=== PATIENT | male | born 1985 | race Caucasian/White ===

== ENCOUNTER 2018-03-07 20:53 | Inpatient (IN) | payer SELFPAY ==
[~2018-03-07] VITALS: Ht 172.7 cm; Wt 79.5 kg
[2018-03-07] MEDS ORDERED: HALOPERIDOL LACTATE 5 MG/ML VIAL IM ONE (21:45)
[2018-03-07] MEDS ORDERED: DiphenhydrAMINE HCL 50 MG/ML VIAL IM ONE (21:45)
[2018-03-07] MEDS ORDERED: LORazepam 2 MG/ML VIAL IM ONE (21:45)
[2018-03-07 21:53] LABS: BASOPHILS % (AUTO) 0.5 % (0.0-2.0); EOSINOPHILS % (AUTO) 0.7 % (1.0-6.0); HEMATOCRIT 48.3 % (41-53); HEMOGLOBIN 16.8 g/dL (13.5-17.5); LYMPHOCYTES # (AUTO) 1.2 K/uL (1.0-4.8); LYMPHOCYTES % (AUTO) 9.2 % (22.0-44.0); MEAN CORPUSCULAR HEMOGLOBIN 33.5 pg (26.0-34.0); MEAN CORPUSCULAR HGB CONC 34.7 G/dL (31.0-37.0); MEAN CORPUSCULAR VOLUME 96 fL (80-100); MONOCYTES % (AUTO) 7.9 % (2.0-9.0); NEUTROPHILS # (AUTO) 10.4 K/uL (1.8-7.7); NEUTROPHILS % (AUTO) 81.7 % (40.0-70.0); PLATELET COUNT (AUTO) 229 K/uL (150-450); RED BLOOD CELL COUNT(AUTO) 5.01 MIL/uL (4.50-5.90); RED CELL DISTRIBUTION WIDTH 12.8 % (11.5-14.5)
[2018-03-07 22:09] LABS: ANION GAP 6 mmol/L (8-16); CALCIUM, TOTAL 9.2 mg/dL (8.8-10.5); CARBON DIOXIDE 31 mmol/L (22-29); CHLORIDE 103 mmol/L (98-107); CREATININE 1.07 mg/dL (0.60-1.30); GLOMERULAR FILTR. RATE CALC > 60 mL/min (>60); GLUCOSE,RANDOM 106 mg/dL (70-110); POTASSIUM 4.1 mmol/L (3.5-5.1); SODIUM SERUM 140 mmol/L (136-145); UREA NITROGEN, BLOOD 16 mg/dL (7-18)
[2018-03-07 22:15] LABS: ALANINE AMINOTRANSFERASE 22 U/L (12-78); ALBUMIN 4.9 g/dL (3.4-5.0); ALKALINE PHOSPHATASE 78 U/L (46-116); ASPARTATE AMINOTRANSFERASE 17 U/L (15-37); TOTAL PROTEIN, SERUM 7.8 g/dL (6.4-8.2)
[2018-03-07] MEDS ORDERED: ZOLPIDEM TARTRATE 10 MG TABLET PO PRN (23:15)
[2018-03-07] MEDS ORDERED: HALOPERIDOL 5 MG TABLET PO PRN (23:15)
[2018-03-08 09:25] LABS: CHOL/HDL RATIO 2.3 (4.2-7.3); CHOLESTEROL 129 mg/dL (131-200); FREE T4 (FREE THYROXINE) 1.24 ng/dL (0.76-1.46); HDL CHOLESTEROL 55 mg/dL (40-60); LDL CHOL (CALC.) 58 mg/dL (0-130); THYROID STIMULATING HORMONE 1.63 uIU/mL (0.36-3.74); TRIGLYCERIDES 80 mg/dL (15-150)
[2018-03-08 16:00] VITALS: BP 115/76
[2018-03-08] MEDS: RisperiDONE 1 MG TABLET PO SCH (17:32)
[2018-03-08] MEDS: LORazepam 2 MG TABLET PO PRN (17:32)
[2018-03-08] MEDS ORDERED: ALBUTEROL SULFATE HFA 90 MCG/PUFF 8 GM INHALER IH PRN (21:30)
[2018-03-08] MEDS ORDERED: ACETAMINOPHEN 325 MG TABLET PO PRN (21:30)
[2018-03-08] MEDS ORDERED: ONDANSETRON HCL 4 MG TABLET PO PRN (21:30)
[2018-03-08] MEDS ORDERED: BACITRACIN 28.4 GM OINTMENT TP PRN (21:30)
[2018-03-08] MEDS ORDERED: MAG HYDROX/AL HYDROX/SIMETH ES 30 ML SUSPENSION UDCUP PO PRN (21:30)
[2018-03-08] MEDS ORDERED: BENZOCAINE/MENTHOL LOZENGE MM PRN (21:30)
[2018-03-08] MEDS ORDERED: PETROLATUM,WHITE 71 GM JELLY TP PRN (21:30)
[2018-03-08] MEDS ORDERED: IBUPROFEN 600 MG TABLET PO PRN (21:30)
[2018-03-08] MEDS ORDERED: MAGNESIUM HYDROXIDE SUSPENSION 30 ML UDCUP PO PRN (21:30)
[2018-03-08] MEDS ORDERED: CloNIDine HCL 0.1 MG TABLET PO PRN (21:30)
[2018-03-08] MEDS ORDERED: LOPERAMIDE HCL 2 MG CAPSULE PO PRN (21:30)
[2018-03-09 06:24] VITALS: BP 112/65
[2018-03-09 08:08] VITALS: BP 116/67
[2018-03-09 09:04] LABS: CHOL/HDL RATIO 2.2 (4.2-7.3); FREE T4 (FREE THYROXINE) 0.91 ng/dL (0.76-1.46); THYROID STIMULATING HORMONE 0.52 uIU/mL (0.36-3.74)
[2018-03-09] MEDS: RisperiDONE 1 MG TABLET PO SCH ×2 (09:22→17:00)
[2018-03-09] MEDS: OMEPRAZOLE 20 MG CAPSULE PO SCH (09:23)
[2018-03-09] MEDS: DOCUSATE SODIUM 100 MG CAPSULE PO SCH (09:23)
[2018-03-09] MEDS: LORazepam 2 MG TABLET PO PRN (17:00)
[2018-03-09 17:05] VITALS: BP 102/60
[2018-03-10 07:10] VITALS: BP 101/63
[2018-03-10 08:09] VITALS: BP 108/61
[2018-03-10] MEDS: DOCUSATE SODIUM 100 MG CAPSULE PO SCH (08:40)
[2018-03-10] MEDS: OMEPRAZOLE 20 MG CAPSULE PO SCH (08:40)
[2018-03-10] MEDS: RisperiDONE 1 MG TABLET PO SCH (08:40)
[2018-03-10] MEDS ORDERED: RISP1 PO (15:12)
== END 2018-03-10 16:00 | disposition home or self-care (01) | DRG 885 ==
LOC: EMS 20:55 → UNDOADMIN 23:14 → B3A 23:14
PROVIDERS: ADMIT Psychiatry & Neurology Child & Adolescent Psychiatry; ATTEND Psychiatry & Neurology Child & Adolescent Psychiatry
DX: F25.9 Schizoaffective disorder, unspecified (principal); F15.90 Other stimulant use, unspecified, uncomplicated; Z71.51 Drug abuse counseling and surveillance of drug abuser; F17.200 Nicotine dependence, unspecified, uncomplicated; F41.9 Anxiety disorder, unspecified; G47.00 Insomnia, unspecified; K59.00 Constipation, unspecified; Z71.6 Tobacco abuse counseling; Z28.21 Immunization not carried out because of patient refusal; Z79.899 Other long term (current) drug therapy
CPT/HCPCS: 83036; 84439; 84443; 90686; 96372; G0480; J1200; J1630; J2060

== ENCOUNTER 2018-04-29 09:26 | Inpatient (IN) | payer MEDICAID ==
[~2018-04-29] VITALS: Ht 167.6 cm; Wt 74.1 kg
[~2018-04-29 09:26] MED LIST: RISP1 PO
[2018-04-29] MEDS ORDERED: HALOPERIDOL LACTATE 5 MG/ML VIAL IM ONE (11:00)
[2018-04-29] MEDS ORDERED: LORazepam 2 MG/ML VIAL IM ONE (11:00)
[2018-04-29] MEDS ORDERED: DiphenhydrAMINE HCL 50 MG/ML VIAL IM ONE (11:00)
[2018-04-29] MEDS ORDERED: DiphenhydrAMINE HCL 50 MG/ML VIAL ONE (11:07)
[2018-04-29] MEDS ORDERED: LORazepam 2 MG/ML VIAL ONE (11:07)
[2018-04-29] MEDS ORDERED: HALOPERIDOL LACTATE 5 MG/ML VIAL ONE (11:08)
[2018-04-29] MEDS ORDERED: ZOLPIDEM TARTRATE 10 MG TABLET PO PRN (11:45)
[2018-04-29 13:10] LABS: BASOPHILS % (AUTO) 0.3 % (0.0-2.0); EOSINOPHILS % (AUTO) 0.1 % (1.0-6.0); HEMATOCRIT 43.4 % (41-53); LYMPHOCYTES # (AUTO) 1.1 K/uL (1.0-4.8); LYMPHOCYTES % (AUTO) 10.5 % (22.0-44.0); MEAN CORPUSCULAR HEMOGLOBIN 33.2 pg (26.0-34.0); MEAN CORPUSCULAR HGB CONC 34.7 G/dL (31.0-37.0); MEAN CORPUSCULAR VOLUME 96 fL (80-100); MONOCYTES % (AUTO) 9.5 % (2.0-9.0); NEUTROPHILS # (AUTO) 8.1 K/uL (1.8-7.7); NEUTROPHILS % (AUTO) 79.6 % (40.0-70.0); PLATELET COUNT (AUTO) 207 K/uL (150-450); RED BLOOD CELL COUNT(AUTO) 4.53 MIL/uL (4.50-5.90); RED CELL DISTRIBUTION WIDTH 12.6 % (11.5-14.5)
[2018-04-29 13:18] LABS: ANION GAP 12 mmol/L (8-16); CALCIUM, TOTAL 9.2 mg/dL (8.8-10.5); CARBON DIOXIDE 26 mmol/L (22-29); CHLORIDE 103 mmol/L (98-107); CREATININE 0.87 mg/dL (0.60-1.30); GLOMERULAR FILTR. RATE CALC > 60 mL/min (>60); GLUCOSE,RANDOM 98 mg/dL (70-110); POTASSIUM 3.5 mmol/L (3.5-5.1); SODIUM SERUM 141 mmol/L (136-145); UREA NITROGEN, BLOOD 17 mg/dL (7-18)
[2018-04-29 13:24] LABS: ALANINE AMINOTRANSFERASE 29 U/L (12-78); ALKALINE PHOSPHATASE 76 U/L (46-116); ASPARTATE AMINOTRANSFERASE 23 U/L (15-37); BILIRUBIN,TOTAL 0.9 mg/dL (0.1-1.0); TOTAL PROTEIN, SERUM 6.9 g/dL (6.4-8.2)
[2018-04-29] MEDS ORDERED: SODIUM CHLORIDE 0.9% 1,000 ML IV ONE ×2 (19:46→20:00)
[2018-04-29 23:03] VITALS: BP 108/62
[2018-04-30 08:21] VITALS: BP 103/81
[2018-04-30] MEDS: RisperiDONE 2 MG TABLET PO SCH ×2 (10:35→16:23)
[2018-04-30 16:00] VITALS: BP 103/76
[2018-04-30] MEDS: LORazepam 2 MG TABLET PO PRN (18:17)
[2018-04-30] MEDS ORDERED: BACITRACIN 28.4 GM OINTMENT TP PRN (19:45)
[2018-04-30] MEDS ORDERED: ALBUTEROL SULFATE HFA 90 MCG/PUFF 8 GM INHALER IH PRN (19:45)
[2018-04-30] MEDS ORDERED: MAGNESIUM HYDROXIDE SUSPENSION 30 ML UDCUP PO PRN (19:45)
[2018-04-30] MEDS ORDERED: ONDANSETRON HCL 4 MG TABLET PO PRN (19:45)
[2018-04-30] MEDS ORDERED: BENZOCAINE/MENTHOL LOZENGE MM PRN (19:45)
[2018-04-30] MEDS ORDERED: CloNIDine HCL 0.1 MG TABLET PO PRN (19:45)
[2018-04-30] MEDS ORDERED: PETROLATUM,WHITE 71 GM JELLY TP PRN (19:45)
[2018-04-30] MEDS ORDERED: IBUPROFEN 600 MG TABLET PO PRN (19:45)
[2018-04-30] MEDS ORDERED: MAG HYDROX/AL HYDROX/SIMETH ES 30 ML SUSPENSION UDCUP PO PRN (19:45)
[2018-04-30] MEDS ORDERED: LOPERAMIDE HCL 2 MG CAPSULE PO PRN (19:45)
[2018-04-30] MEDS ORDERED: ACETAMINOPHEN 325 MG TABLET PO PRN (19:45)
[2018-05-01 06:55] VITALS: BP 107/74
[2018-05-01 08:17] VITALS: BP 106/70
[2018-05-01] MEDS: OMEPRAZOLE 20 MG CAPSULE PO SCH (09:02)
[2018-05-01] MEDS: DOCUSATE SODIUM 100 MG CAPSULE PO SCH (09:02)
[2018-05-01] MEDS: RisperiDONE 2 MG TABLET PO SCH ×2 (09:02→16:29)
[2018-05-01 16:00] VITALS: BP 104/67
[2018-05-01] MEDS: LORazepam 2 MG TABLET PO PRN (16:29)
[2018-05-02 06:35] VITALS: BP 101/71
[2018-05-02 08:17] VITALS: BP 106/64
[2018-05-02] MEDS: RisperiDONE 2 MG TABLET PO SCH ×2 (09:14→16:46)
[2018-05-02] MEDS: DOCUSATE SODIUM 100 MG CAPSULE PO SCH (09:14)
[2018-05-02] MEDS: HALOPERIDOL 5 MG TABLET PO PRN ×2 (09:14→16:46)
[2018-05-02] MEDS: OMEPRAZOLE 20 MG CAPSULE PO SCH (09:14)
[2018-05-02] MEDS: LORazepam 2 MG TABLET PO PRN ×2 (09:14→16:46)
[2018-05-02 16:00] VITALS: BP 101/63
[2018-05-03 05:54] VITALS: BP 111/68
[2018-05-03] MEDS: RisperiDONE 2 MG TABLET PO SCH ×2 (08:32→17:01)
[2018-05-03] MEDS: LORazepam 2 MG TABLET PO PRN ×2 (08:32→17:01)
[2018-05-03] MEDS: DOCUSATE SODIUM 100 MG CAPSULE PO SCH (08:32)
[2018-05-03] MEDS: HALOPERIDOL 5 MG TABLET PO PRN ×2 (08:32→17:01)
[2018-05-03] MEDS: OMEPRAZOLE 20 MG CAPSULE PO SCH (08:32)
[2018-05-03 09:27] VITALS: BP 100/63
[2018-05-03 16:25] VITALS: BP 115/66
[2018-05-04 05:40] VITALS: BP 108/65
[2018-05-04 08:00] VITALS: BP 105/65
[2018-05-04] MEDS: DOCUSATE SODIUM 100 MG CAPSULE PO SCH (09:19)
[2018-05-04] MEDS: OMEPRAZOLE 20 MG CAPSULE PO SCH (09:20)
[2018-05-04] MEDS: RisperiDONE 2 MG TABLET PO SCH ×2 (09:20→16:19)
[2018-05-04 16:00] VITALS: BP 142/78
[2018-05-04] MEDS: LORazepam 2 MG TABLET PO PRN (18:13)
[2018-05-05 06:46] VITALS: BP 109/72
[2018-05-05 08:20] VITALS: BP 109/62
[2018-05-05] MEDS: RisperiDONE 2 MG TABLET PO SCH ×2 (09:02→16:55)
[2018-05-05] MEDS: OMEPRAZOLE 20 MG CAPSULE PO SCH (09:02)
[2018-05-05] MEDS: DOCUSATE SODIUM 100 MG CAPSULE PO SCH (09:02)
[2018-05-05 16:00] VITALS: BP 137/68
[2018-05-06 05:59] VITALS: BP 110/81
[2018-05-06 08:09] VITALS: BP 118/64
[2018-05-06] MEDS: RisperiDONE 2 MG TABLET PO SCH ×2 (08:09→16:21)
[2018-05-06] MEDS: OMEPRAZOLE 20 MG CAPSULE PO SCH (08:09)
[2018-05-06] MEDS: DOCUSATE SODIUM 100 MG CAPSULE PO SCH (08:10)
[2018-05-06 16:00] VITALS: BP 130/66
[2018-05-06] MEDS: LORazepam 2 MG TABLET PO PRN (16:21)
[2018-05-07 06:25] VITALS: BP 125/76
[2018-05-07 08:12] VITALS: BP 106/61
[2018-05-07] MEDS: LORazepam 2 MG TABLET PO PRN ×2 (09:15→16:36)
[2018-05-07] MEDS: DOCUSATE SODIUM 100 MG CAPSULE PO SCH (09:16)
[2018-05-07] MEDS: FOLIC ACID 1 MG TABLET PO SCH (09:16)
[2018-05-07] MEDS: THIAMINE HCL 100 MG TABLET PO SCH (09:16)
[2018-05-07] MEDS: RisperiDONE 2 MG TABLET PO SCH ×2 (09:16→16:36)
[2018-05-07] MEDS: MULTIVITAMINS WITH MINERALS, THERAPEUTIC TABLET PO SCH (09:16)
[2018-05-07] MEDS: OMEPRAZOLE 20 MG CAPSULE PO SCH (09:16)
[2018-05-07 16:25] VITALS: BP 107/68
[2018-05-08 06:48] VITALS: BP 118/68
[2018-05-08] MEDS ORDERED: RISP2 PO (08:22)
[2018-05-08 08:25] VITALS: BP 102/60
[2018-05-08] MEDS: THIAMINE HCL 100 MG TABLET PO SCH (08:55)
[2018-05-08] MEDS: DOCUSATE SODIUM 100 MG CAPSULE PO SCH (08:56)
[2018-05-08] MEDS: RisperiDONE 2 MG TABLET PO SCH (08:56)
[2018-05-08] MEDS: FOLIC ACID 1 MG TABLET PO SCH (08:56)
[2018-05-08] MEDS: OMEPRAZOLE 20 MG CAPSULE PO SCH (08:56)
[2018-05-08] MEDS: MULTIVITAMINS WITH MINERALS, THERAPEUTIC TABLET PO SCH (08:56)
== END 2018-05-08 10:00 | disposition home or self-care (01) | DRG 750 ==
LOC: EMS 09:26 → B3A 18:24
PROVIDERS: ADMIT Psychiatry & Neurology Child & Adolescent Psychiatry; ATTEND Psychiatry & Neurology Child & Adolescent Psychiatry
DX: F25.0 Schizoaffective disorder, bipolar type (principal); Z78.1 Physical restraint status; F15.90 Other stimulant use, unspecified, uncomplicated; F17.200 Nicotine dependence, unspecified, uncomplicated; F41.9 Anxiety disorder, unspecified; G47.00 Insomnia, unspecified; K59.00 Constipation, unspecified
CPT/HCPCS: 96372; 99291; G0480; J1200; J1630; J2060; J7030

== ENCOUNTER 2019-08-10 03:47 | Inpatient (IN) | payer MEDICAID, OTHER ==
[~2019-08-10] VITALS: Ht 175.3 cm; Wt 81.8 kg
[~2019-08-10 03:47] MED LIST changes: -RISP1 PO; +RISP2 PO
[2019-08-10] MEDS ORDERED: DiphenhydrAMINE HCL 50 MG/ML VIAL IM ONE (05:30)
[2019-08-10] MEDS ORDERED: HALOPERIDOL LACTATE 5 MG/ML VIAL IM ONE (05:30)
[2019-08-10] MEDS ORDERED: LORazepam 1 MG TABLET PO ONE (05:30)
[2019-08-10] MEDS ORDERED: HALOPERIDOL 5 MG TABLET PO ONE ×2 (05:30→06:00)
[2019-08-10] MEDS ORDERED: LORazepam 2 MG/ML VIAL IM ONE (05:30)
[2019-08-10] MEDS ORDERED: HALOPERIDOL 5 MG TABLET ONE (05:44)
[2019-08-10] MEDS ORDERED: DiphenhydrAMINE HCL 25 MG CAPSULE PO ONE (05:45)
[2019-08-10] MEDS ORDERED: ZOLPIDEM TARTRATE 10 MG TABLET PO PRN (06:00)
[2019-08-10] MEDS ORDERED: LORazepam 2 MG TABLET PO ONE (06:00)
[2019-08-10] MEDS ORDERED: HALOPERIDOL 5 MG TABLET PO PRN (06:00)
[2019-08-10 06:20] LABS: AMPHET/METH SCREEN,URINE POSITIVE (NEGATIVE); BARBITURATE SCREEN, URINE NEGATIVE (NEGATIVE); BENZODIAZEPINES SCREEN,URINE NEGATIVE (NEGATIVE); CANNABINOID SCREEN,URINE POSITIVE (NEGATIVE); COCAINE SCREEN,URINE NEGATIVE (NEGATIVE); METHADONE SCREEN, URINE NEGATIVE (NEGATIVE); OPIATE SCREEN,URINE NEGATIVE (NEGATIVE)
[2019-08-10 06:23] LABS: PHENCYCLIDINE SCREEN,URINE NEGATIVE (NEGATIVE)
[2019-08-10 08:20] VITALS: BP 90/55
[2019-08-10] MEDS ORDERED: IBUPROFEN 400 MG TABLET PO PRN (09:45)
[2019-08-10] MEDS ORDERED: MAGNESIUM HYDROXIDE SUSPENSION 30 ML UDCUP PO PRN (09:45)
[2019-08-10] MEDS ORDERED: CloNIDine HCL 0.1 MG TABLET PO PRN (09:45)
[2019-08-10] MEDS ORDERED: PETROLATUM,WHITE 28 GM JELLY TP PRN (09:45)
[2019-08-10] MEDS ORDERED: ONDANSETRON HCL 4 MG TABLET PO PRN (09:45)
[2019-08-10] MEDS ORDERED: ALBUTEROL SULFATE HFA 90 MCG/PUFF 8 GM INHALER IH PRN (09:45)
[2019-08-10] MEDS ORDERED: NICOTINE 14 MG/24 HOUR PATCH TD PRN (09:45)
[2019-08-10] MEDS ORDERED: GuaiFENesin/D-METHORPHAN [SUGAR-FREE] 200-20MG/10 ML SYRUP UDCUP PO PRN (09:45)
[2019-08-10] MEDS ORDERED: LOPERAMIDE HCL 2 MG CAPSULE PO PRN (09:45)
[2019-08-10] MEDS ORDERED: DOCUSATE SODIUM 100 MG CAPSULE PO PRN (09:45)
[2019-08-10] MEDS ORDERED: MAG HYDROX/AL HYDROX/SIMETH ES 30 ML SUSPENSION UDCUP PO PRN (09:45)
[2019-08-10] MEDS ORDERED: ACETAMINOPHEN 325 MG TABLET PO PRN (09:45)
[2019-08-10 20:16] VITALS: BP 108/78
[2019-08-10] MEDS: RisperiDONE 2 MG TABLET PO SCH (20:33)
[2019-08-11 08:16] VITALS: BP 93/43
[2019-08-11 08:47] VITALS: BP 96/55
[2019-08-11] MEDS: RisperiDONE 2 MG TABLET PO SCH ×2 (08:56→20:33)
[2019-08-11] MEDS ORDERED: DOCUSATE SODIUM 100 MG CAPSULE PO PRN (10:00)
[2019-08-11] MEDS ORDERED: MAGNESIUM HYDROXIDE SUSPENSION 30 ML UDCUP PO PRN (10:00)
[2019-08-11] MEDS ORDERED: ACETAMINOPHEN 325 MG TABLET PO PRN (10:00)
[2019-08-11] MEDS ORDERED: CloNIDine HCL 0.1 MG TABLET PO PRN (10:00)
[2019-08-11] MEDS ORDERED: NICOTINE 14 MG/24 HOUR PATCH TD PRN (10:00)
[2019-08-11] MEDS ORDERED: LOPERAMIDE HCL 2 MG CAPSULE PO PRN (10:00)
[2019-08-11] MEDS ORDERED: IBUPROFEN 400 MG TABLET PO PRN (10:00)
[2019-08-11] MEDS ORDERED: GuaiFENesin/D-METHORPHAN [SUGAR-FREE] 200-20MG/10 ML SYRUP UDCUP PO PRN (10:00)
[2019-08-11] MEDS ORDERED: ONDANSETRON HCL 4 MG TABLET PO PRN (10:00)
[2019-08-11] MEDS ORDERED: ALBUTEROL SULFATE HFA 90 MCG/PUFF 8 GM INHALER IH PRN (10:00)
[2019-08-11] MEDS ORDERED: MAG HYDROX/AL HYDROX/SIMETH ES 30 ML SUSPENSION UDCUP PO PRN (10:00)
[2019-08-11] MEDS ORDERED: PETROLATUM,WHITE 28 GM JELLY TP PRN (10:00)
[2019-08-11] MEDS: LORazepam 2 MG TABLET PO PRN (20:33)
[2019-08-12 08:35] VITALS: BP 98/56
[2019-08-12] MEDS: RisperiDONE 2 MG TABLET PO SCH ×2 (09:32→20:33)
[2019-08-12 16:20] VITALS: BP 104/92
[2019-08-12] MEDS: LORazepam 2 MG TABLET PO PRN (20:33)
[2019-08-13 05:06] VITALS: BP 101/88
[2019-08-13 08:13] VITALS: BP 106/86
[2019-08-13 08:50] LABS: ALANINE AMINOTRANSFERASE 15 U/L (12-78); ALBUMIN 3.7 g/dL (3.4-5.0); ALKALINE PHOSPHATASE 72 U/L (46-116); ANION GAP 8 mmol/L (8-16); ASPARTATE AMINOTRANSFERASE 9 U/L (15-37); BILIRUBIN,TOTAL 0.5 mg/dL (0.1-1.0); CALCIUM, TOTAL 8.5 mg/dL (8.8-10.5); CARBON DIOXIDE 27 mmol/L (22-29); CHLORIDE 106 mmol/L (98-107); CHOL/HDL RATIO 2.8 (4.2-7.3); CHOLESTEROL 106 mg/dL (131-200); CREATININE 0.99 mg/dL (0.60-1.30); GLOMERULAR FILTR. RATE CALC > 60 mL/min (>60); GLUCOSE,RANDOM 110 mg/dL (70-110); HDL CHOLESTEROL 38 mg/dL (40-60); LDL CHOL (CALC.) 47 mg/dL (0-130); POTASSIUM 3.4 mmol/L (3.5-5.1); SODIUM SERUM 141 mmol/L (136-145); THYROID STIMULATING HORMONE 0.98 uIU/mL (0.36-3.74); TOTAL PROTEIN, SERUM 6.7 g/dL (6.4-8.2); TRIGLYCERIDES 103 mg/dL (15-150); UREA NITROGEN, BLOOD 6 mg/dL (7-18)
[2019-08-13] MEDS: RisperiDONE 2 MG TABLET PO SCH (09:54)
[2019-08-13] MEDS ORDERED: RISP2 PO (14:11)
[2019-08-13] MEDS ORDERED: POTASSIUM CHLORIDE 20 MEQ ER TABLET PO ONE (14:45)
[2019-08-13 16:16] VITALS: BP 100/61
== END 2019-08-13 18:55 | disposition home or self-care (01) | DRG 750 ==
LOC: EMS 03:47 → B3A 08:29
DX: F20.0 Paranoid schizophrenia (principal); I95.9 Hypotension, unspecified; R45.850 Homicidal ideations; Z59.0 Homelessness; K59.00 Constipation, unspecified; F41.9 Anxiety disorder, unspecified; G47.00 Insomnia, unspecified; F15.90 Other stimulant use, unspecified, uncomplicated; F10.10 Alcohol abuse, uncomplicated; Y90.9 Presence of alcohol in blood, level not specified; G44.209 Tension-type headache, unspecified, not intractable; F12.90 Cannabis use, unspecified, uncomplicated
CPT/HCPCS: 84443; J1200; J1630; J2060

== ENCOUNTER → 2024-02-17 | Emergency (ER) | payer MEDICAID, OTHER ==
[~2024-02-17] VITALS: Ht 177.8 cm; Wt 99.0 kg
[~2024-02-17] MED LIST changes: -RISP2 PO; +RISP2TAB45 PO
[2024-02-17 08:13] VITALS: BP 113/74; PULSE 58; RESP 18; TEMP 97.1; O2SAT 96
[2024-02-17 09:14] LABS: BASOPHILS % (AUTO) 0.3 % (0.0-2.0); EOSINOPHILS % (AUTO) 0.5 % (1.0-6.0); HEMATOCRIT 45.9 % (41-53); HEMOGLOBIN 15.9 g/dL (13.5-17.5); LYMPHOCYTES % (AUTO) 12.2 % (22.0-44.0); MEAN CORPUSCULAR HEMOGLOBIN 33.2 pg (26.0-34.0); MEAN CORPUSCULAR HGB CONC 34.7 G/dL (31.0-37.0); MEAN CORPUSCULAR VOLUME 96 fL (80-100); MONOCYTES # (AUTO) 0.4 K/uL (0.1-1.0); MONOCYTES % (AUTO) 5.6 % (2.0-9.0); NEUTROPHILS # (AUTO) 6.4 K/uL (1.8-7.7); NEUTROPHILS % (AUTO) 81.4 % (40.0-70.0); PLATELET COUNT (AUTO) 213 K/uL (150-450); RED BLOOD CELL COUNT(AUTO) 4.79 MIL/uL (4.50-5.90); RED CELL DISTRIBUTION WIDTH 13.1 % (11.5-14.5); WHITE BLOOD COUNT (AUTO) 7.9 K/uL (4.5-11.0)
[2024-02-17 09:23] LABS: ANION GAP 6 mmol/L (8-16); CALCIUM, TOTAL 9.2 mg/dL (8.8-10.5); CARBON DIOXIDE 31 mmol/L (22-29); CHLORIDE 101 mmol/L (98-107); CREATININE 0.87 mg/dL (0.60-1.30); GLOMERULAR FILTR. RATE CALC > 60 mL/min (>60); GLUCOSE,RANDOM 102 mg/dL (70-110); POTASSIUM 4.2 mmol/L (3.5-5.1); SODIUM SERUM 138 mmol/L (136-145); UREA NITROGEN, BLOOD 9 mg/dL (7-18)
== END | disposition still patient (30) ==
LOC: EMS 08:01
DX: S39.011A Strain of muscle, fascia and tendon of abdomen, initial encounter (principal); F20.9 Schizophrenia, unspecified; F12.90 Cannabis use, unspecified, uncomplicated; F15.90 Other stimulant use, unspecified, uncomplicated; F17.210 Nicotine dependence, cigarettes, uncomplicated; X50.0XXA Overexertion from strenuous movement or load, initial encounter; Y93.89 Activity, other specified; Y92.89 Other specified places as the place of occurrence of the external cause; Y99.0 Civilian activity done for income or pay
CPT/HCPCS: 80048; 85025; 99283